=== PATIENT | male | born 1955 | race Caucasian/White ===

== ENCOUNTER 2022-07-02 08:38 | Emergency (ER) | payer OTHER ==
[2022-07-02] MEDS ORDERED: EPINEPHrine 1 MG/10 ML SYR IV ONE (08:39)
[2022-07-02] MEDS ORDERED: Calcium Chloride 10% INJ SYR IV ONE (08:39)
[2022-07-02] MEDS ORDERED: DOPAMINE 400 MG/250ML D5W PREMIX IV ONE (08:39)
[2022-07-02] MEDS ORDERED: NA CHLORIDE 0.9% 1,000 ML IV ONE (08:39)
[2022-07-02 08:56] LABS: Absolute Lymphocytes (CBC) 3.7 K/uL (0.7-4.9); Lymphocytes % 70.6 % (15.3-44.8); MCV 93.4 fL (80-100); MPV 7.2 fL (7.6-11.3); RBC Red Blood Cell Count 4.39 M/uL (4.33-5.43)
[2022-07-02 09:00] LABS: Protime INR 1.05
[2022-07-02 09:05] LABS: SARS-CoV-2 Antigen Rapid Res Negative (Negative)
--- NOTE | 2022-07-02 09:23 | ER ---
Nurse's Notes [facility] Name: Adonay Larose Age: 67 yrs Sex: Male : 1955 Arrival Date: 07/02/2022 Time: 08:39 Bed 4 Private MD: Diagnosis: Acute respiratory failure with hypercapnia;Abnormal electrocardiogram [ECG] [EKG];Cardiac arrest due to underlying cardiac condition;Acidosis;Diabetes mellitus due to underlying condition with ketoacidosis;Hypotension, unspecified;Multiple fractures of ribs, left side;Multiple fractures of ribs, right side Presentation: 07/02 08:30 Chief complaint: EMS states: witnessed collapse in hotel parking lot, bystanders ph reported that pt dropped to the ground, hit his head, took 2 breaths and then stopped breathing. Initial rhythm for EMS asystole, CPR initiated by EMS, 7.5 ETT measuring 21 \T\ teeth, 20 G to LFA, epi administered x 4, wound to back of head, FSBG HIGH. Care prior to arrival: Oral intubation, CPR via thumper performed by EMS IV initiated. 20 GA, in the left forearm, Oxygen administered. via AMBU bag. Compressions began prior to arrival. 08:30 Method Of Arrival: EMS: [facility] ph 08:30 Acuity: SUSANNA 1 ph 09:01 Coronavirus screen: Vaccine status: unknown. Ebola Screen: No symptoms or risks ph identified at this time. Initial Sepsis Screen: Does the patient meet any 2 criteria? No. Patient's initial sepsis screen is negative. Does the patient have a suspected source of infection? No. Patient's initial sepsis screen is negative. Risk Assessment: Do you want to hurt yourself or someone else? Patient reports no desire to harm self or others. Onset of symptoms was July 02, 2022. Triage Assessment: 11:34 General: Appears. iw Historical: - Allergies: 10:24 Morphine; iw - Home Meds: 10:44 aspirin 81 mg Oral tab daily [Active]; Abilify 2 mg oral tab 1 tab once daily [Active]; iw Crestor 20 mg oral tab 1 tab once daily [Active]; tamsulosin 0.4 mg oral cap once daily [Active]; omeprazole 20 mg Oral cpDR 1 cap once daily [Active]; Farxiga 10 mg oral tab 1 tab once daily [Active]; Claritin 10 mg Oral tab 1 tab once daily [Active]; Wellbutrin SR 100 mg Oral SR12 nightly [Active]; ferrous sulfate 325 mg (65 mg iron) Oral tab 1 tab once daily [Active]; lisinopril 40 mg Oral tab 1 tab once daily [Active]; Tricor 145 mg Oral tab 1 tab once daily [Active]; hydroxyzine HCl 50 mg Oral tab twice a day [Active]; levothyroxine 75 mcg tab 1 tab once daily [Active]; Vitamin B-12 1,000 mcg Oral tab daily [Active]; albuterol sulfate 5 mg/mL inhalation nebu as needed [Active]; Humalog U-100 Insulin 100 unit/mL Sub-Q crtg after meals and before bedtime [Active]; Lantus U-100 Insulin 100 unit/mL Sub-Q crtg twice a day [Active]; tramadol 50 mg Oral tab as needed [Active]; terbinafine HCl 250 mg oral tab 1 tab once daily [Active]; - PMHx: 08:53 Diabetes mellitus; ph 10:25 colon cancer; iw 10:49 Hypothyroidism; iw - PSHx: 10:25 colon resection; iw - Immunization history:: Adult Immunizations up to date. - Social history:: Smoking status: unknown. Screenin:01 Abuse screen: Denies threats or abuse. Denies injuries from another. Nutritional ph screening: No deficits noted. Tuberculosis screening: No symptoms or risk factors identified. 09:01 [facility] ED Fall Risk Assessment (Adult) History of falling in the last 3 months, ph including since admission Yes- single mechanical fall (1 pt) Confusion or Disorientation No (0 pts) Intoxicated or Sedated No (0 pts) Impaired Gait No (0 pts) Mobility Assist Device Used No (0 pt) Altered Elimination No (0 pt) Score/Fall Risk Level 0 - 2 = Low Risk Oriented to surroundings, Maintained a safe environment. Assessment: 08:30 CPR assessment: unresponsive, intubated, Ambu ventilation. Cardiac rhythm is PEA. ph General: Behavior is unresponsive. Neuro: Level of Consciousness is unresponsive. Respiratory: Airway is patent via oral intubation. 09:07 Reassessment: central line in place, Dopamine infusing to central line, radiology at bedside. 10:05 Reassessment: family at bedside, updated on POC. iw 10:14 Reassessment: RT dropped FiO2 to 60% , BP improved to 90/53 after levophed and 3rd iw liter of NS. 07/03 08:09 Reassessment: Received call from lab with blood culture positive result. Spoke to aaJuan José Alonzo (Nurse) at [facility] ICU and faxed blood culture result to her. . Vital Signs: 07/02 08:35 BP 185 / 128; Pulse 124; Resp 20; Pulse Ox 94% on ETT ambu; ph 09:02 Weight 86.18 kg; ph 09:07 BP 102 / 60; Pulse 126; Resp 24 A; Temp 94.2(R); Pulse Ox 100% on ETT vent; iw 09:08 BP 98 / 61; Pulse 128; Resp 16 A; Pulse Ox 100% on ETT vent; iw 10:04 BP 77 / 52; Pulse 116; Resp 16 A; Pulse Ox 99% on ETT vent; iw 10:14 BP 89 / 58; Pulse 117; Resp 14 A; Pulse Ox 98% on ETT vent; iw 10:43 BP 92 / 63; Pulse 120; Resp 17; Pulse Ox 94% on ETT vent; iw [place] Coma Score: 08:35 Eye Response: none(1). Verbal Response: none(1). Motor Response: none(1). Total: 3. ph ED Course: 08:30 Intubation: 7.5 Fr. ETT placed orally. ph 08:39 Patient arrived in ED. mr 08:41 Yannick Gates MD is Attending Physician. lulu 08:45 Initial lab(s) drawn, by ED staff, sent to lab. EKG done, by ED staff, reviewed by hilary Gates MD. NGT: inserted 16 Fr. other via oral route verified placement of air over stomach, to intermittent suction. Inserted saline lock: 20 gauge in right antecubital area, using aseptic technique. Blood collected. 08:50 Assisted provider with central line placement. Set up central line tray. Triple lumen ph line placed in right femoral. Line placed by Yannick Gates MD Placement verified by CXR, blood return, Dressed with 4X4s, Tegaderm, Patient tolerated well. Before procedure, did Practitioner(s) obtain informed consent? No. Patient \T\ family education about procedure, CLABSI prevention and S/S of infection? No. Time-out/Briefing performed prior to start of procedure? Yes. Was handwashing/sanitizing done immediately prior to procedure? Yes. Was patient positioned to in a way to prevent air embolism? Yes. Was procedure site sterilized? Yes, with Was the site allowed to dry? Yes. Was local anesthetic and/or sedation utilized? Yes. During the procedure, did the Practitioner(s) maintain a sterile field? Yes. Were unused ports clamped during insertion? Yes. Was a 2nd qualified MD obtained after 3 unsuccessful insertion attempts? N/A. Was blood aspirated from each lumen? Yes. After the procedure, did the Practitioner(s) clean the site and apply a sterile dressing? Yes. 08:51 Triage completed. ph 08:54 Patient has correct armband on for positive identification. Placed in gown. Bed in low ph position. Side rails up X2. 09:02 Arm band placed on Patient placed in an exam room, on a stretcher, on oxygen, on ph phototypesetting equipment monitor, on pulse oximetry. 09:09 Amy Mcdonald, CELINA is Primary Nurse. iw 09:17 XRAY Chest (1 view) In Process Unspecified. EDMS 09:24 initiated a transfer with Ashley Esteban Rn from the [facility]. eb 09:36 CT Traumagram (Head C Spine CAP wo con) In Process Unspecified. EDMS 09:[address] [facility] will have to decline the patient in transfer due to not being eb at capacity. 09:[address] Gates with Yoon Montoya from the [facility] transfer center. eb 10:[address] Hartman the insole beveler chemistry quality control analyst for [facility] with Dr. Gates for eb patient transfer consultation. 10:15 administrative approval given by Yoon Montoya/ patient has been accepted to [facility] 8 B 417/ Dr. Darshan Hartman has accepted the patient in transfer/ report to be called to [phone]. 19:44 Patient transferred, IV remains in place. iw Administered Medications: 09:51 Discontinued: DOPamine 10 mcg/kg/min IV at calculated rate continuous lulu 08:31 Drug: EPINEPHrine 0.1mg/mL 1:10,000 1 mg Route: IVP; Site: left forearm; ph 08:35 Follow up: Response: Cardiac rhythm changed iw 08:32 Drug: Sodium Bicarbonate 1 amp Route: IVP; Site: left forearm; ph 09:00 Follow up: Response: No adverse reaction iw 08:32 Drug: Calcium Chloride 10% 10 ml Route: IVP; Site: left forearm; ph 17:24 Follow up: Response: No adverse reaction iw 08:40 Drug: NS 0.9% 1000 ml Route: IV; Rate: 1 bolus; Site: right femoral; iw 09:45 Follow up: IV Status: Completed infusion iw 08:45 Drug: NS 0.9% 1000 ml Route: IV; Rate: 1 bolus; Site: right femoral; iw 10:00 Follow up: IV Status: Completed infusion iw 08:47 Drug: DOPamine 10 mcg/kg/min Route: IV; Rate: calculated rate; Site: right femoral; iw 08:49 Drug: EPINEPHrine 0.1mg/mL 1:10,000 0.5 mg Route: IVP; Site: left forearm; ph 08:51 Follow up: Response: Cardiac rhythm changed iw 09:07 Drug: Sodium Bicarbonate 1 amp Route: IVP; Site: right femoral; iw 09:20 Follow up: Response: No adverse reaction iw 09:07 Drug: Sodium Bicarbonate 1 amp Route: IVP; Site: right femoral; iw 09:25 Follow up: Response: No adverse reaction iw 09:50 Drug: Levophed (norepinephrine) 0.1 mcg/kg/min Route: IV; Rate: calculated rate; Site: iw right femoral; 11:27 Follow up: IV Status: Infusion continued upon transfer iw 10:02 Drug: NS 0.9% 1000 ml Route: IV; Rate: 1 bolus; Site: right femoral; iw 11:27 Follow up: IV Status: Completed infusion iw 10:16 Drug: Insulin Regular Human 10 units {Co-Signature: ph (Roslyn Carrasco RN).} Route: iw Sub-Q; Site: left upper arm; 10:35 Follow up: Response: No adverse reaction iw 10:23 Drug: Rocephin (cefTRIAXone) 1 grams Route: IV; Rate: per protocol; Site: right femoral;iw 10:28 Follow up: IV Status: Completed infusion iw 10:24 Drug: Pepcid (famotidine) 20 mg Route: IVP; Site: right femoral; iw 10:26 Follow up: Response: No adverse reaction iw 10:44 Drug: Insulin Drip - (Insulin Regular Human 100 units, NS 0.9% 100 ml) {Co-Signature: ph iw (Amy Mcdonald RN).} Route: IV; Rate: 6 units/hr; Site: right femoral; 11:27 Follow up: IV Status: Infusion continued upon transfer iw 11:28 Not Given (Physician Discretion): NS 0.9% 1000 ml IV at 125 ml/hr continuous iw Medication: 09:01 VIS not applicable for this client. ph Outcome: 09:23 ER care complete, transfer ordered by . lulu 11:33 Outcome Resuscitation successful iw 11:33 Transferred by helicopter to [facility], Transfer form completed. X-rays sent w/ patient. 11:33 critical 11:34 Patient left the ED. iw Signatures: Dispatcher [employer] Yannick Montgomery MD MD cha Rivera, Amy Robin RN RN iw Rachelle Taylor RN RN aa5 Roslyn Carrasco RN RN ph Cherelle Meneses RN Roslyn Carrasco RN ph Corrections: (The following items were deleted from the chart) 10:03 10:02 90.72 kg Reported; iw iw 10: 08:53 Allergies: Unable to obtain; ph iw 11: 09:07 BP 102 / 60; Pulse 126bpm; Resp 24bpm; Assisted; Pulse Ox 100% ET / Ventilator; iwiw
--- NOTE | 2022-07-02 09:23 | EDPHYS ---
Physician Documentation [facility] Name: Adonay Larose Age: 67 yrs Sex: Male : 1955 Arrival Date: 07/02/2022 Time: 08:39 Bed 4 Private MD: ED Physician Yannick Gates HPI: 07/02 09:13 This 67 yrs old Male presents to ER via EMS with complaints of CPR. lulu 09:13 Preceding the arrest, the patient collapsed. The arrest occurred in a parking lot. lulu Pre-hospital course: The arrest was witnessed Bystanders at the scene did not perform CPR. EMS care prior to arrival: initiation of ACLS, peripheral IV, intubation oxygen, 100% by ET tube. 3 minutes elapsed prior to ACLS. ACLS details: see run. It is unknown whether or not the patient has had similar symptoms in the past. Historical: - Allergies: 10:24 Morphine; iw - Home Meds: 10:44 aspirin 81 mg Oral tab daily [Active]; Abilify 2 mg oral tab 1 tab once daily [Active]; iw Crestor 20 mg oral tab 1 tab once daily [Active]; tamsulosin 0.4 mg oral cap once daily [Active]; omeprazole 20 mg Oral cpDR 1 cap once daily [Active]; Farxiga 10 mg oral tab 1 tab once daily [Active]; Claritin 10 mg Oral tab 1 tab once daily [Active]; Wellbutrin SR 100 mg Oral SR12 nightly [Active]; ferrous sulfate 325 mg (65 mg iron) Oral tab 1 tab once daily [Active]; lisinopril 40 mg Oral tab 1 tab once daily [Active]; Tricor 145 mg Oral tab 1 tab once daily [Active]; hydroxyzine HCl 50 mg Oral tab twice a day [Active]; levothyroxine 75 mcg tab 1 tab once daily [Active]; Vitamin B-12 1,000 mcg Oral tab daily [Active]; albuterol sulfate 5 mg/mL inhalation nebu as needed [Active]; Humalog U-100 Insulin 100 unit/mL Sub-Q crtg after meals and before bedtime [Active]; Lantus U-100 Insulin 100 unit/mL Sub-Q crtg twice a day [Active]; tramadol 50 mg Oral tab as needed [Active]; terbinafine HCl 250 mg oral tab 1 tab once daily [Active]; - PMHx: 08:53 Diabetes mellitus; ph 10:25 colon cancer; iw 10:49 Hypothyroidism; iw - PSHx: 10:25 colon resection; iw - Immunization history:: Adult Immunizations up to date. - Social history:: Smoking status: unknown. ROS: 09:14 Unable to obtain ROS due to patient is on ventilator. lulu Exam: 09:14 Constitutional: The patient appears well developed, intubated lulu 09:14 Cardiovascular: Rate: normal, actual rate is 72 bpm, Rhythm: regular, Pulses: Pulses are 2+ in bilateral radial, brachial, femoral, popliteal, posterior tibial and and dorsalis pedis arteries.. Heart sounds: normal, Edema: is not appreciated, JVD: is not appreciated. 09:14 ECG was reviewed by the Attending Physician. 09:14 Respiratory: intubated. 09:14 Abdomen/GI: Bowel sounds: diminished, Palpation: soft, Liver: no appreciated palpable abnormalities, Hernia: not appreciated. 09:14 Skin: Appearance: Color: normal in color, Temperature: normal temperature, warm, Moisture: normal moisture, petechiae, not noted, ecchymosis, not noted, diaphoresis is not appreciated. 09:14 Neuro: unresponsive. Vital Signs: 08:35 BP 185 / 128; Pulse 124; Resp 20; Pulse Ox 94% on ETT ambu; ph 09:02 Weight 86.18 kg; ph 09:07 BP 102 / 60; Pulse 126; Resp 24 A; Temp 94.2(R); Pulse Ox 100% on ETT vent; iw 09:08 BP 98 / 61; Pulse 128; Resp 16 A; Pulse Ox 100% on ETT vent; iw 10:04 BP 77 / 52; Pulse 116; Resp 16 A; Pulse Ox 99% on ETT vent; iw 10:14 BP 89 / 58; Pulse 117; Resp 14 A; Pulse Ox 98% on ETT vent; iw 10:43 BP 92 / 63; Pulse 120; Resp 17; Pulse Ox 94% on ETT vent; iw [place] Coma Score: 08:35 Eye Response: none(1). Verbal Response: none(1). Motor Response: none(1). Total: 3. ph Procedures: 09:20 Central Line: the site was prepped with Betadine, in sterile fashion, a triple lumen lulu catheter was inserted, in the right femoral vein, in 2 attempts. placement was verified, by blood return, the site was dressed with using sterile technique, the patient tolerated the procedure, well. Guzman cath inserted by myself - 16 Fr. MDM: 08:41 Patient medically screened. kb 09:18 Differential diagnosis: arrythmia, cardiac arrest, respiratory arrest, traumatic lulu injury, overdose, asphyxiation, renal failure. Differential Diagnosis sepsis, flu. Data reviewed: vital signs, nurses notes, EMS record, lab test result(s), EKG, radiologic studies, CT scan, plain films. Consideration of Admission/Observation Patient was admitted/placed on observation. I considered the following discharge prescriptions or medication management in the emergency department Medications were administered in the Emergency Department. See MAR. Discussion of test interpretation with radiology: I had a discussion with radiology regarding a test interpretation. dw ct trauma. Test considered but Not performed: Ultrasound echo cardio not done. Historians other than the Patient: Family Member: son, . Care significantly affected by the following chronic conditions: Diabetes. Counseling: I had a detailed discussion with the patient and/or guardian regarding: the historical points, exam findings, and any diagnostic results supporting the discharge/admit diagnosis, lab results, radiology results, the need to transfer to another facility, for higher level of care, [facility] does not immediately have the required specialist. 07/02 08:45 Order name: Basic Metabolic Panel; Complete Time: 09:38 07/02 08:45 Order name: CBC with Diff; Complete Time: 09:38 [facility] 07/02 08:45 Order name: LFT's; Complete Time: 09:38 [facility] 07/02 08:45 Order name: Magnesium; Complete Time: 09:38 07/02 08:45 Order name: NT PRO-BNP; Complete Time: 09:38 [facility] 07/02 08:45 Order name: PT-INR; Complete Time: 09:06 [facility] 07/02 08:45 Order name: Troponin HS; Complete Time: 09:38 [facility] 07/02 08:45 Order name: XRAY Chest (1 view); Complete Time: 09:38 [facility] 07/02 08:45 Order name: SARS RAPID; Complete Time: 09:06 [facility] 07/02 09:02 Order name: Lactate w/ 2H reflex if indic.; Complete Time: 09:56 eb 07/02 09:02 Order name: Blood Culture Adult (2) eb 07/02 09:17 Order name: ABG Arterial Blood Gas; Complete Time: 09:56 EDMS 07/02 09:34 Order name: Manual Differential; Complete Time: 09:38 EDMS 07/02 09:06 Order name: CT Traumagram (Head C Spine CAP wo con); Complete Time: 09:56 lulu 07/02 08:45 Order name: EKG; Complete Time: 08:46 lulu 07/02 08:45 Order name: Cardiac monitoring; Complete Time: 09:10 lulu 07/02 08:45 Order name: EKG - Nurse/Tech; Complete Time: 09:10 lulu 07/02 08:45 Order name: IV Saline Lock; Complete Time: 09:10 [facility] 07/02 08:45 Order name: Labs collected and sent; Complete Time: 09:10 [facility] 07/02 08:45 Order name: O2 Per Protocol; Complete Time: 09:10 lulu 07/02 08:45 Order name: O2 Sat Monitoring; Complete Time: 09:10 [facility] 07/02 09:07 Order name: Guzman; Complete Time: 10:02 [facility] Administered Medications: 09:51 Discontinued: DOPamine 10 mcg/kg/min IV at calculated rate continuous lulu 08:31 Drug: EPINEPHrine 0.1mg/mL 1:10,000 1 mg Route: IVP; Site: left forearm; ph 08:35 Follow up: Response: Cardiac rhythm changed iw 08:32 Drug: Sodium Bicarbonate 1 amp Route: IVP; Site: left forearm; ph 09:00 Follow up: Response: No adverse reaction iw 08:32 Drug: Calcium Chloride 10% 10 ml Route: IVP; Site: left forearm; ph 17:24 Follow up: Response: No adverse reaction iw 08:40 Drug: NS 0.9% 1000 ml Route: IV; Rate: 1 bolus; Site: right femoral; iw 09:45 Follow up: IV Status: Completed infusion iw 08:45 Drug: NS 0.9% 1000 ml Route: IV; Rate: 1 bolus; Site: right femoral; iw 10:00 Follow up: IV Status: Completed infusion iw 08:47 Drug: DOPamine 10 mcg/kg/min Route: IV; Rate: calculated rate; Site: right femoral; iw 08:49 Drug: EPINEPHrine 0.1mg/mL 1:10,000 0.5 mg Route: IVP; Site: left forearm; ph 08:51 Follow up: Response: Cardiac rhythm changed iw 09:07 Drug: Sodium Bicarbonate 1 amp Route: IVP; Site: right femoral; iw 09:20 Follow up: Response: No adverse reaction iw 09:07 Drug: Sodium Bicarbonate 1 amp Route: IVP; Site: right femoral; iw 09:25 Follow up: Response: No adverse reaction iw 09:50 Drug: Levophed (norepinephrine) 0.1 mcg/kg/min Route: IV; Rate: calculated rate; Site: iw right femoral; 11:27 Follow up: IV Status: Infusion continued upon transfer iw 10:02 Drug: NS 0.9% 1000 ml Route: IV; Rate: 1 bolus; Site: right femoral; iw 11:27 Follow up: IV Status: Completed infusion iw 10:16 Drug: Insulin Regular Human 10 units {Co-Signature: ph (Roslyn Carrasco RN).} Route: iw Sub-Q; Site: left upper arm; 10:35 Follow up: Response: No adverse reaction iw 10:23 Drug: Rocephin (cefTRIAXone) 1 grams Route: IV; Rate: per protocol; Site: right femoral;iw 10:28 Follow up: IV Status: Completed infusion iw 10:24 Drug: Pepcid (famotidine) 20 mg Route: IVP; Site: right femoral; iw 10:26 Follow up: Response: No adverse reaction iw 10:44 Drug: Insulin Drip - (Insulin Regular Human 100 units, NS 0.9% 100 ml) {Co-Signature: ph iw (Amy Mcdonald RN).} Route: IV; Rate: 6 units/hr; Site: right femoral; 11:27 Follow up: IV Status: Infusion continued upon transfer iw 11:28 Not Given (Physician Discretion): NS 0.9% 1000 ml IV at 125 ml/hr continuous iw Disposition Summary: 07/02/22 09:23 Transfer Ordered Transfer Location: [facility] lulu Reason: Higher level of care lulu Problem: new lulu Symptoms: have improved lulu Condition: Critical(07/02/22 09:23) lulu Accepting Physician: to icu , [facility](07/02/22 11:34) iw Diagnosis - Acute respiratory failure with hypercapnia lulu - Abnormal electrocardiogram [ECG] [EKG] lulu - Cardiac arrest due to underlying cardiac condition lulu - Acidosis lulu - Diabetes mellitus due to underlying condition with ketoacidosis lulu - Hypotension, unspecified lulu - Multiple fractures of ribs, left side lulu - Multiple fractures of ribs, right side lulu Forms: - Medication Reconciliation Form lulu - SBAR form lulu Signatures: Dispatcher [employer] EDMS Lou Welch, CASINO FLOORPERSON-C CASINO FLOORPERSON-Yannick Grajeda MD MD cha Williams, Irene, RN RN iw Roslyn Carrasco RN RN ph Amy Mcdonald RN iw Roslyn Carrasco RN ph Corrections: (The following items were deleted from the chart) 09:23 09:23 to icu , [facility] lulu lulu 09:23 09:23 Stable lulu lulu 09:40 09:23 to icu , [facility] lulu lulu 09:51 09:40 to icu , [facility] lulu lulu 09:58 09:51 to icu , [facility] lulu lulu 10:26 08:53 Allergies: Unable to obtain; ph 11:34 09:58 to icu , [facility] lulu
[2022-07-02 09:25] LABS: Albumin 3.1 g/dL (3.4-5.0); Bilirubin Direct 0.2 mg/dL (0-0.2); Bilirubin Total 0.5 mg/dL (0.2-1.0); Magnesium 2.5 mg/dL (1.6-2.4); Potassium 3.5 mmol/L (3.5-5.1); Protein, Total 5.6 g/dL (6.4-8.2); Troponin High Sensitivity 22.7 pg/mL (<58.9)
--- NOTE | 2022-07-02 09:31 | RAD REPORT ---
EXAM DESCRIPTION: RAD - Chest Single View - 07/02/2022 9:15 am CLINICAL HISTORY: cpr COMPARISON: No comparisons FINDINGS: Lines: Endotracheal tube at the aortic arch. NG tube overlying the stomach. Lungs: No evidence of edema or pneumonia. Pleural: No significant pleural effusions or pneumothorax. Cardiac: Cardiomegaly. Mediastinum: Within normal limits. Bones: No acute fractures. Other: Pacemaker leads . IMPRESSION: No acute cardiopulmonary disease. Endotracheal tube and enteric tube in satisfactory pos ition.
[2022-07-02 09:33] LABS: Platelet Estimate ADEQ
[2022-07-02 09:34] LABS: Blood Morphology Comment NOT SEEN (NOT SEEN)
[2022-07-02 09:41] LABS: Arterial Blood Carboxyhemoglob 0.7 % (0-1.5); Blood Gas Oxyhemoglobin 95.7 % (94-97); Blood O2 Saturation 97.9 % (92-98.5)
--- NOTE | 2022-07-02 09:54 | RAD REPORT ---
EXAM DESCRIPTION: CT - Head C Spine Cap Wo Con - 07/02/2022 9:30 am CLINICAL HISTORY: Trauma, head and neck injury. Chest, abdomen and pelvis pain. TRAUMA COMPARISON: No comparisons TECHNIQUE: CT head without contrast. CT cervical spine without contrast with coronal and sagittal reformatted images. CT chest, abdomen and pelvis with coronal and sagittal reformatted images of the spine. All CT scans are performed using dose optimization technique as appropriate and may include automated exposure control or mA/KV adjustment according to patient size. FINDINGS: CT HEAD WITHOUT CONTRAST: No intracranial hemorrhage, hydrocephalus or extra-axial fluid collection. No acute large vascular te rritory infarct. Remote right frontal lobe infarct. The paranasal sinuses and mastoids are clear. The calvarium is intact. CT CERVICAL SPINE WITHOUT CONTRAST: No fracture or subluxation. Multilevel cervical spondylosis. Fusion across C6-7 may be developmental or postsurgical. The prevertebral soft tissues are normal in thickness. CT CHEST, ABDOMEN, PELVIS: Thorax: Chest Wall: No abnormal mass Lungs: Mild dependent consolidation. Endotracheal tube above the zarina. Pleura: No effusions or pneumothorax. Laverne/Mediastinum: No lymphadenopathy. Aorta/Pulmonary Arteries: Unremarkable Heart: Normal size. Coronary artery calcifications. Abdomen/Pelvis: Liver: No acute abnormality or suspicious lesions. Biliary: No biliary ductal dilatation. Stomach: No significant focal abnormality. Duodenum: No significant focal abnormality. Pancreas: No significant abnormality. Spleen: No significant abnormality. Adrenal: No suspicious lesions. Kidney/ureter: No hydronephrosis. No renal calculi. Retroperitoneum: No retroperitoneal adenopathy. Vascular: No aneurysm. Atherosclerosis. Bowel: Partial colectomy. No bowel obstruction.. Peritoneum: No ascites or free air. Bladder: Guzman catheter in the bladder. Reproductive: No adnexal masses. Bones: Anterior rib fractures are present bilaterally. This involves the right third, fourth, fifth, sixth, seventh ribs and on the left at the left second, third, fourth, fifth, sixth ribs. Grade 1 ant erolisthesis of L5 on S1. Insert spur Other: n/a IMPRESSION: 1. No acute intracranial abnormality or skull fracture. Remote right frontal lobe infarc t. 2. No fracture or traumatic malalignment cervical spine. 3. Bilateral anterior rib fractures likely reflecting sequela of cardiopulmonary resuscitation. No ot her evidence of significant trauma. 4. Dependent airspace disease that may reflect atelectasis or aspiration.
[2022-07-02] MEDS ORDERED: NOREPINEPHRINE BITARTRATE/D5W 4 MG/250 ML BAG IV ONE (09:55)
[2022-07-02] MEDS ORDERED: NA CHLORIDE 0.9% 0 ML ONE (10:14)
[2022-07-02] MEDS ORDERED: INSULIN -REGULAR HUMAN 50 UNIT/0.5 ML ML ONE (10:14)
[2022-07-02] MEDS ORDERED: INSULIN -REGULAR HUMAN 100 UNIT in NA CHLORIDE 0.9% 100 ML IV SCH (10:15)
[2022-07-02] MEDS ORDERED: CEFTRIAXONE 1000 MG/VIAL ONE (10:24)
[2022-07-02] MEDS ORDERED: FAMOTIDINE 20 MG/2 ML VIAL IV ONE (10:24)
[2022-07-02 11:39] VITALS: TEMP 94.2
[2022-07-02 11:43] VITALS: BP 92/63; O2SAT 94
--- NOTE | 2022-07-04 18:45 | EKG ---
Test Date: 2022-07-02 Test Time: 08:39:18 [employer] Server: RAUL MEASUREMENT RESULTS: Intervals: Rate: 121 AK: 188 QRSD: 154 QT: 282 QTc: 400 [place]: P: 75 AK: 188 QRS: 111 T: -61 INTERPRETIVE STATEMENTS: Sinus tachycardia with premature atrial complexes Possible Left atrial enlargement Nonspecific intraventricular block Inferior infarct, age undetermined Abnormal ECG No previous ECG available for comparison Electronically Signed On 07-04-22 18:42:09 [employer] TABLETS by Yaw Blunt
== END 2022-07-02 11:34 | disposition short-term general hospital (02) ==
LOC: ER 08:38
PROC: 06HM33Z Insertion of Infusion Device into Right Femoral Vein, Percutaneous Approach (ICD-10-PCS; principal; 2022-07-02)
DX: J96.02 Acute respiratory failure with hypercapnia (principal); I46.8 Cardiac arrest due to other underlying condition; R94.31 Abnormal electrocardiogram [ECG] [EKG]; E08.10 Diabetes mellitus due to underlying condition with ketoacidosis without coma; I95.9 Hypotension, unspecified; S22.43XA Multiple fractures of ribs, bilateral, initial encounter for closed fracture; E03.9 Hypothyroidism, unspecified; Z20.822 Contact with and (suspected) exposure to COVID-19; Z79.82 Long term (current) use of aspirin; Z79.4 Long term (current) use of insulin; Z88.5 Allergy status to narcotic agent; Z85.038 Personal history of other malignant neoplasm of large intestine
CPT/HCPCS: 93005; 87040 ×2; 85025; 80048; 36415; 83735; 87205; 85610; 80076; 83605; 84484; 83880; 70450; 71250; 72125; 71045; 94002; 82805; 31500; 51702; 96372; 92950; 99291; 87811; 36556; J1815 ×2; J0171; J1265; J7030